=== PATIENT | male | born 1970 | race Caucasian/White ===

== ENCOUNTER → 2023-06-02 07:02 | Outpatient (REF) | payer OTHER, SELFPAY | LOC: RAD 07:02 | PROVIDERS: ATTENDING PHYSICIAN Internal Medicine | DX: R10.9 Unspecified abdominal pain (principal); N23 Unspecified renal colic | CPT/HCPCS: 74176 ==

== ENCOUNTER → 2023-08-09 07:33 | Outpatient (REF) | payer OTHER, SELFPAY | LOC: MRI 07:33 | PROVIDERS: ATTENDING PHYSICIAN Podiatrist Foot Surgery; FAMILY PHYSICIAN Internal Medicine | DX: G57.61 Lesion of plantar nerve, right lower limb (principal) | CPT/HCPCS: 73718 ==

== ENCOUNTER → 2024-11-27 19:14 | Outpatient (REF) | payer OTHER, SELFPAY | LOC: PAVMRI 19:14 | PROVIDERS: ATTENDING PHYSICIAN Family Medicine; FAMILY PHYSICIAN Internal Medicine | DX: M54.12 Radiculopathy, cervical region (principal) | CPT/HCPCS: 72141 ==

== ENCOUNTER 2025-01-16 16:03 | Inpatient (IN) | payer OTHER, SELFPAY ==
[2025-01-15] MEDS: TORADOL 15 MG IV ×2 (19:35→21:37)
[2025-01-15] MEDS: NSS 1000 IV (19:35)
[2025-01-15] MEDS: ZOFRAN 4 MG IV ×2 (19:36→20:57)
[2025-01-15] MEDS: DILAUDID 1 MG IV ×2 (19:36→20:55)
--- NOTE | 2025-01-15 19:36 | ED.GENMED ---
History of Present Illness
General
Chief Complaint: Flank Pain
Source: patient, records and spouse
Exam Limitations: none
Time Seen by Provider: 01/15/25 19:28
Nursing documentation reviewed up to this point in time: agreed with
History of Present Illness
History of Present Illness:
54-year-old male with history as noted presents for evaluation of severe right flank pain. Symptoms started abruptly prior to arrival. Describes a sharp pain in the right flank associated with severe nausea and retching/vomiting. Identical to
prior kidney stones.
Past History
Past History
ED Past Medical History: GERD and Other (Herniated disc nonsurgical, kidney stones, sleep apnea)
ED Past Surgical History: None
Social History
Tobacco: Non-smoker
Alcohol: None
Drug: None
Personal:
Living: with family
Employment: Employed
Family History
Family History: Other (Noncontributory)
Review of Systems
Review of Systems
All Other Systems: ROS reviewed and negative except as documented in HPI and ROS
ABD/GI: Reports nausea and vomiting; Denies abdominal pain
: Denies flank pain
Phy Exam
Physical Exam
Physical Exam:
General: Awake, alert, intermittent retching, rolling in bed unable to find position of comfort
Head: Normocephalic, atraumatic
Eyes: Conjunctiva normal
Throat: Airway intact
Neck: Trachea midline, moving freely without pain
Lungs: Breathing comfortably with no evidence of respiratory distress
Heart: Regular rate
Abd: Soft, non distended, nontender
Neuro: Grossly intact
Skin: Warm and dry
Extremities: Atraumatic
Scores
Heart Failure Risk
Heart Failure Risk Score: Not Applicable
Heart Score for Chest Pain Patients
STEMI patient?: Not applicable
Withdrawal Assessment of Alcohol
Withdrawal Assessment Completed?: Not applicable
Course
Orders/Labs/Results
Orders:
Orders
01/15/25 19:28
CT Abd/pel Without Iv Or Oral Urgent
Comment:
Reason For Exam: R flank pain
Urinalysis Reflex To Culture Urgent
0.9% Sodium Chloride 1000 ml [Nss] 1,000 ml IV BOLUS
Ketorolac [Toradol] 15 mg IV NOW STA
Ondansetron Injectable [Zofran] 4 mg IV NOW STA
01/15/25 19:32
HYDROmorphone [Dilaudid] 1 mg IV NOW STA
01/15/25 19:39
Complete Blood Count/With Diff Urgent
Comprehensive Metabolic Panel Urgent
01/15/25 20:19
UROLOGY CONSULT Urgent
Consulting Provider: Donald Mosquera Jr.
Was physician already notified: Yes
01/15/25 20:37
Tamsulosin [Flomax] 0.4 mg PO NOW STA
Abnormal Lab Results
01/15/25
19:39
Absolute Lymphs (auto) 4.0 H 10^3/uL
(1.2-3.4)
Absolute Monos (auto) 0.9 H 10^3/uL
(0.1-0.6)
Glucose 108 H mg/dl
(70-99)
01/15/25 19:39
01/15/25 19:39
Vital Signs
Initial and Last Documented VS:
Initial Vital Signs
Temp Pulse Resp Pulse Ox
36.7 C 86 20 98
01/15/25 19:25 01/15/25 19:25 01/15/25 19:25 01/15/25 19:25
Last Documented Vital Signs
Temp Pulse Resp BP Pulse Ox
36.7 C 86 20 119/78 98
01/15/25 19:25 01/15/25 19:25 01/15/25 19:25 01/15/25 20:08 11/05/25 19:38
MDM/Problems Addressed
Differential Diagnosis Includes:
Nephrolithiasis, UTI, cholelithiasis, cholecystitis
MDM/Problems Addressed:
54-year-old male presents with right flank pain similar to prior kidney stones. Vitals and exam as above. Place an IV send labs including a CBC and a CMP and send urinalysis. Send for CT abdomen. Treat pain, antiemetics, fluids.
Reassessment patient's pain better controlled after medications here. Still reports 4 out of 10 intensity. Nausea improving. Continue fluids.
CT reviewed by me appears to show right hydronephrosis with approximately 2 mm stone at the UVJ. Awaiting final report.
CT report reviewed: 2 mm stone at the UVJ with hydronephrosis. Labs reviewed CBC unremarkable, CMP no clinically significant abnormalities�creatinine acceptable at 1.0. Patient clinically stable on reassessment. Case discussed with urology for
consultation--patient has been seen by Dr. Mosquera in the past.
Discussed with urology�will admit to their service tonight. Continue fluids, pain control. Will give a dose of Flomax. N.p.o. at midnight.
*Radiology
Radiology exam reviewed: radiology read reviewed
*Pulse Oximetry
SaO2: 98
Oxygen Mode of Delivery: Room air
Patient hypoxic: no (98%)
*Critical Care Note
Total Time (30-74mins, 75-104mins- exclusive of procedures): Not Applicable
Data Reviewed
Review of Other/Old Records Reveals: Labs and Records
Source: patient, records and spouse
Patient Management
Discussion with other providers: Firmware Developer (Discussed with urologist) and Radiologist (Discussed with radiologist)
Escalation/DeEscalation of care consider admission/obs:
Admission indicated
ED Attending Note
-
Portions of this chart may have been created with voice recognition software.� Occasional wrong word or��sound alike� substitutions may have occurred due to the inherent limitations of voice recognition software.
Discharge Plan
Departure
Patient Disposition: Admit
Date of Disposition: 01/15/25
Time of Disposition: 20:38
Admit to doctor: Dr. Mosquera
Presentation/result/management discussed w/ accepting MD/DO: Urology
Discharge Problem:
Right nephrolithiasis
Prescriptions:
No Action
pantoprazole 40 MG tablet,delayed release (DR/EC)
40 mg PO BID
ibuprofen 200 MG tablet
200 mg PO Q6HPRN PRN (Reason: abd pain)
acetaminophen 325 MG tablet
650 mg PO Q4HPRN PRN (Reason: mild pain)
sucralfate 1 GRAM tablet
1 g PO TID
tamsulosin 0.4 MG capsule
0.4 mg PO DAILY
oxycodone-acetaminophen 5 MG/325 MG tablet
1 tab PO Q4HPRN PRN (Reason: pain) Qty: 7 0RF
Interventions
Interventions:
*General Assessment Last Done: 01/15/25 19:25
XC-Fanist-Xzfdzkiouc Assessment Last Done: 01/15/25 20:12
ED-Male Genitourinary Assessment Last Done: 01/15/25 20:12
Discharge Date and Time
Print Language: S[place]APORE[place]
[2025-01-15 19:37] VITALS: BMI 23.6
[2025-01-15 19:47] LABS: Hematocrit 42.2 % (39.0-52.0); Hemoglobin 14.8 g/dL (13.0-18.0); Mean Corp Hgb Conc. 35.1 g/dL (33.0-37.0); Mean Corpuscular Volume 87.9 fL (80.0-94.0); Nucleated Red Blood Cells % 0 % (-); Platelet Count 344 10^3/uL (130-400); Red Cell Dist. Width 12.8 % (11.5-14.5)
[2025-01-15 20:08] VITALS: BP 119/78
[2025-01-15 20:09] LABS: ALT (SGPT) 29 U/L (0-50); AST (SGOT) 28 U/L (17-59); Albumin 4.6 g/dl (3.5-5.0); Alkaline Phosphatase 54 U/L (38-126); Blood Urea Nitrogen 19 mg/dl (9-20); Calcium 10.0 mg/dl (8.4-10.2); Carbon Dioxide 26 mmol/L (22-30); Chloride 104 mmol/L (98-107); Estimated Creatinine Clearance 85 ml/min; Glucose 108 mg/dl (70-99); Potassium 4.1 mmol/L (3.5-5.1); Sodium 137 mmol/L (135-145); Total Protein 7.5 g/dl (6.3-8.2); eGFR > 60.00
[2025-01-15] MEDS: FLOMAX 0.4 MG PO (20:47)
[2025-01-15] MEDS: NSS 500 IV (21:40)
[2025-01-15] MEDS: DILAUDID 0.5 MG IV (22:04)
--- NOTE | 2025-01-15 22:24 | HPS.HSE ---
Family Physician
-
Family Physician: Leo Pruett
Chief Complaint
-
Right flank pain
History of Present Illness
Patient is a 54 year old male with a past medical history significant for asthma, sleep apnea, GERD, inappropriate tachycardia s/p third COVID vaccine, Sciatica (left leg), C-5C-6 osteophyte causing compression w/cervical stenosis affecting left
arm, and kidneys stones (calcium oxalate) x 2, who presents to the emergency department for evaluation of severe right flank pain. Symptoms started abruptly this evening around 7:30 pm. Pain described as sharp pain in the right flank radiating to
right lateral lower abdomen, associated with severe nausea and retching/vomiting. Symptoms identical to prior kidney stones. Patient denies fevers, headache, dizziness.
In the emergency department: Labs unremarkable, vital signs stable, afebrile
Abdomen/Pelvis CT scan impression:
1. MILD ACUTE RIGHT HYDROURETERONEPHROSIS secondary to a 2 mm obstruction calculus in the distal right ureter.
2. 1.5 mm nonobstructing right intrarenal calculus.
Patient received NSS 1 L bolus, Dilaudid, Ketorolac, Flomax, and Zofran.
ED Provider, Dr. Jenny Jr. reviewed with Urology, Dr. Mosquera, who is accepting the patient to his service.
Plan: NPO, IV fluids, pain management, antiemetics. Urology to see in am.
Medical History
Past Medical History
Past Medical History: Reports Arrhythmia (inappropriate tachycardia s/p 3rd covid vaccine), Asthma (PMHx, no meds), GERD and Other (C5/C6 osteophyte causing compression, cervical stenosis affecting L arm, sciatica L leg, sleep apnea)
Past Surgical History: Reports Orthopedic (Knee surgery, per pt - episode of respiratory distress post op)
Social History
Tobacco: Non-smoker
Alcohol: Occasional
Drug: None
Personal:
Living: With Family
Employment: Employed
Family History
Family History: Not pertinent
Allergies / Home Medications
Allergies reflects when Allergies were last updated in [employer].
Home Medications with original date entered in [employer]
Allergy/Medication List:
Patient Allergies
Allergy/AdvReac Type Severity Reaction Status Date / Time
Penicillins Allergy Rash Verified 01/15/25 19:25
prochlorperazine (From Allergy DYSTONIA Verified 01/15/25 21:31
Compazine)
Home Medications
�Medication �Instructions �Recorded
acetaminophen 325 mg tablet 650 mg PO Q6HPRN PRN mild pain 01/15/25
(Tylenol)
ibuprofen 200 mg tablet (Advil) 200 mg PO HS mild pain 01/15/25
pantoprazole 40 mg tablet,delayed 40 mg PO DAILY Gastrointestinal 01/15/25
release (Protonix) Issue
Review of Systems
-
History Source: Patient
Constitutional: Reports No Symptoms
EENT: Reports No Symptoms
Respiratory: Reports No Symptoms
Cardiac: Reports No Symptoms
Abdomen/GI: Reports Abdominal Pain, Nausea and Vomiting
: Reports Flank Pain
Musculoskeletal: Reports No Symptoms
Skin: Reports No Symptoms
Neurological: Reports No Symptoms
Psych: Reports No Symptoms
Physical Exam
Vital Signs
Vital Signs
Temp Pulse Resp BP Pulse Ox
98.0 F 86 20 119/78 98
01/15/25 19:25 01/15/25 19:25 01/15/25 19:25 01/15/25 20:08 01/15/25 19:38
Physical Exam
General: Well Nourished, Appears in Distress and Pain (right sided abdominal pain)
HEENT: Moist mucous membranes and PERRLA
Respiratory: Clear and Non Labored Respirations
Cardiac: S1/S2 and Regular Rhythm
GI: Normal Bowel Sounds and Tender
Skin: Warm and Dry
Neuro: Awake, Alert and Oriented
Psych: Intact Judgment/Insight
Laboratory Results
-
01/15/25 19:39
01/15/25 19:39
Laboratory Results
Total Bilirubin 0.8 mg/dl (0.2-1.3) 01/15/25 19:39
AST 28 U/L (17-59) 01/15/25 19:39
ALT 29 U/L (0-50) 01/15/25 19:39
Alkaline Phosphatase 54 U/L (38-126) 01/15/25 19:39
Data Reviewed
-
CT Scan: Report Reviewed by me
Lab Data: Labs Reviewed by me
Impression/Plan
-
IMPRESSION:
Patient is a 54 year old male with a past medical history significant for asthma, sleep apnea, GERD, inappropriate tachycardia s/p third COVID vaccine, Sciatica (left leg), C-5C-6 osteophyte causing compression w/cervical stenosis affecting left
arm, and kidneys stones (calcium oxalate) x 2, who presents to the emergency department for evaluation of severe right flank pain.
PLAN:
Right nephrolithiasis
-Admit to Urology, Med Surg under the service of Dr. Mosquera
-Abdomen/Pelvis CT scan w/o IV or oral contrast impression:
1. MILD ACUTE RIGHT HYDROURETERONEPHROSIS secondary to a 2 mm obstruction calculus in the distal right ureter.
2. 1.5 mm nonobstructing right intrarenal calculus.
-NPO until seen by Urology, continue IV fluids NSS @ 75 mls/hr
-Strain all urine
-Pain medication: Toradol, Dilaudid
-Antiemetics: Zofran
-Continue Flomax
DVT prophylaxis: SCD's
Code Status: Full Code
[2025-01-16] VITALS (14 sets, daily range): BP systolic 101–136; BP diastolic 60–82; BMI 23.3
[2025-01-16] MEDS: DILAUDID 1 MG IV (02:20)
[2025-01-16] MEDS: TORADOL 15 MG IV ×3 (05:25→23:55)
--- NOTE | 2025-01-16 05:47 | PTCARENOTE ---
Patient is a 54 year old male with Right flank pain, dx Right Nephrolithiasis. PMH asthma, sleep apnea, GERD, inappropriate tachycardia s/p third COVID vaccine, Sciatica (left leg), C-5C-6 osteophyte causing compression w/cervical stenosis affecting
left arm, and kidneys stones (calcium oxalate) x 2, Pt arrived from ED with his at 23:55. AOx3, pt stated pain level acceptable and he did not wish to take a anything else at this time, bed in a low position, call light in reach.
[2025-01-16 06:44] LABS: Hematocrit 37.0 % (39.0-52.0); Hemoglobin 12.9 g/dL (13.0-18.0); Mean Corp Hgb Conc. 34.9 g/dL (33.0-37.0); Mean Corpuscular Volume 88.5 fL (80.0-94.0); Platelet Count 282 10^3/uL (130-400); Red Cell Dist. Width 12.5 % (11.5-14.5)
--- NOTE | 2025-01-16 07:10 | W.PN.URO.CBU ---
Today's Communication / Plan
-
OR if no stone passage
Assessment / Plan
-
stone with intractable pain
reviewed with dr macdonald
continue medical trial of passage- posted for OR today
risks, benefits, alternatives and disabilities reviewed
Diagnosis
-
Date of Service: January 16, 2025
-
Patient Diagnosis:
stone
Subjective
-
pt admitted with right uvj stone- intractable pain and nausea
continues with pain this am
Objective
-
Vital Signs
Temp Pulse Resp BP Pulse Ox
97.7 F 74 18 130/66 95
01/16/25 00:00 01/16/25 00:00 01/16/25 00:00 01/16/25 00:00 01/16/25 00:00
Intake and Output
01/15/25 01/16/25 01/17/25
06:59 06:59 06:59
Intake Total 450 / 450
Output Total 150 / 150
Balance 300 / 300
Intake:
IV piggybacks 450 / 450
Output:
Urine, Voided 150 / 150
Laboratory Results
01/16/25 06:14
Review of Systems
-
Constitutional: Fatigue
Respiratory: No Symptoms
Cardiac: No Symptoms
Abdomen/GI: Nausea
Physical Exam
-
General - no acute distress
[2025-01-16 07:13] LABS: Blood Urea Nitrogen 23 mg/dl (9-20); Calcium 9.7 mg/dl (8.4-10.2); Carbon Dioxide 26 mmol/L (22-30); Chloride 107 mmol/L (98-107); Estimated Creatinine Clearance 61 ml/min; Glucose 133 mg/dl (70-99); Potassium 4.5 mmol/L (3.5-5.1); Sodium 140 mmol/L (135-145); eGFR > 60.00
[2025-01-16] MEDS: PROTONIX IV 40 MG IV (08:47)
[2025-01-16] MEDS: FLOMAX 0.4 MG PO (08:47)
[2025-01-16] MEDS: NSS (PRESERVATIVE FREE) 10 ML IV (08:48)
--- NOTE | 2025-01-16 11:54 | W.IMMPOSTOP ---
Surgical Immed Post Op Note
-
Primary Surgeon:
henri
Assisting Surgeon:
Pre-op Diagnosis:
right ureteral stone
Post-op Diagnosis:
right ureteral stone and tight right ureter
Procedure Performed:
cysto/ureteral dilation/stent
Anesthesia Type:
gen
Specimen / Cultures:
stone
Estimated Blood Loss:
2cc
Complications:
none
Operative Findings:
very tight distal ureter- abld to pass wire and dilate with open ended ureteral stents
ureteroscopy passed- stone removed
7french/24cm right ureteral stent placed
will re-assess later today for possible discharge
[2025-01-16] MEDS: LEVAQUIN 100 IV (12:12)
[2025-01-16] MEDS: SUBLIMAZE 25 MCG IV (12:33)
--- NOTE | 2025-01-16 13:07 | CM ---
CM following re: discharge planning.
Reviewed pt's chart, met with pt.
Pt is a 54 year old male, admitted with primary dx of right ureteral stone and tight right ureter, POD#0 cysto/ureteral dilation/stent
OBS reviewed, letter placed on chart.
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 Per Surgery, possible discharge home today.
D/C plan: home no needs. Spouse to transport.
[2025-01-16] MEDS: NSS 1000 IV ×2 (16:18)
[2025-01-16] MEDS: TORADOL IV (17:58)
[2025-01-16] MEDS: TYLENOL 650 MG PO (21:30)
[2025-01-17 03:15] VITALS: BP 114/75
[2025-01-17] MEDS: MIRALAX 17 GRAMS PO (03:22)
[2025-01-17] MEDS: NSS 1000 IV (04:18)
[2025-01-17] MEDS: TORADOL IV (06:37)
[2025-01-17 07:08] VITALS: BP 126/85
--- NOTE | 2025-01-17 07:33 | W.PN.URO.CBU ---
Today's Communication / Plan
-
discharge
Assessment / Plan
-
stone with intractable pain
s/p right ureteroscopy/dilation/stone extraction and stent
pt kept overnight due to pain/hematuria/nausea- all improved today
plan for discharge with outpt f/u for stent removal
Diagnosis
-
Date of Service: January 17, 2025
-
Patient Diagnosis:
stone
s/p right ureteroscopy/laser litho and stent 01/16
Subjective
-
pt feels better
expected stent discomfort
hematuria improved
eating
no fevers
Objective
-
Vital Signs
Temp Pulse Resp BP Pulse Ox
97.9 F 73 16 126/85 99
01/17/25 07:08 01/17/25 07:08 01/17/25 07:08 01/17/25 07:08 01/17/25 07:08
Intake and Output
01/16/25 01/17/25 01/18/25
06:59 06:59 06:59
Intake Total 450 / 450 1260 / 1260
Output Total 150 / 150 350 / 350
Balance 300 / 300 910 / 910
Intake:
Oral fluids 960 / 960
IV fluids (Total) 300 / 300
Normosol 300 / 300
IV piggybacks 450 / 450
Output:
Urine, Voided 150 / 150 350 / 350
Other:
Number of approximated MODERATE 3
amounts of urine
Laboratory Results
01/16/25 06:14
01/16/25 06:14
Review of Systems
-
Constitutional: Fatigue
Respiratory: No Symptoms
Cardiac: No Symptoms
Abdomen/GI: No Symptoms
: Dysuria
Physical Exam
-
General - no acute distress
--- NOTE | 2025-01-17 07:45 | W.DS.TRANS ---
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
-
Discharge Instructions:
Discharge Diagnosis/Procedures you had a right ureteroscopy/stone removal and
stent
Diet No restrictions
Activity No restrictions
Driving Restrictions As prior to admission
Wound Care expect blood in urine, urinary urgency and
frequency, and some discomfort/pain with
urination
Instructions:
Stand-Alone Forms:
Changes to Home Medications: No
Discharge Medications:
DC Medications w/original date entered in [employer]
acetaminophen 325 mg tablet (Tylenol) 650 mg PO Q6HPRN PRN mild pain 01/15/25
ibuprofen 200 mg tablet (Advil) 200 mg PO HS mild pain 01/15/25
pantoprazole 40 mg tablet,delayed release (Protonix) 40 mg PO DAILY Gastrointestinal Issue 01/15/25
phenazopyridine 200 mg tablet (Pyridium) 200 mg PO BID 10 days #20 tabs 01/16/25
tamsulosin 0.4 mg capsule 0.4 mg PO DAILY #14 caps 01/16/25
tramadol 50 mg tablet 50 mg PO Q8H PRN Pain #20 tabs 01/16/25
nitrofurantoin macrocrystal 100 mg capsule 100 mg PO BID #10 caps 01/17/25
Home Medication Changes
Pending Results: No
[2025-01-17] MEDS: PROTONIX IV 40 MG IV (08:28)
[2025-01-17] MEDS: NSS (PRESERVATIVE FREE) 10 ML IV (08:28)
[2025-01-17] MEDS: FLOMAX 0.4 MG PO (08:28)
== END 2025-01-17 09:21 | disposition home or self-care (01) | DRG 661 ==
LOC: 2 SOUTH 16:03
PROVIDERS: Nurse Practitioner Family; ADMITTING PHYSICIAN Specialist; EMERGENCY PHYSICIAN Emergency Medicine; FAMILY PHYSICIAN Internal Medicine
PROC: 0T768DZ Dilation of Right Ureter with Intraluminal Device, Via Natural or Artificial Opening Endoscopic (ICD-10-PCS; 2025-01-16)
PROC: 0TC68ZZ Extirpation of Matter from Right Ureter, Via Natural or Artificial Opening Endoscopic (ICD-10-PCS; 2025-01-16)
DX: N20.1 Calculus of ureter (principal); G47.30 Sleep apnea, unspecified; K21.9 Gastro-esophageal reflux disease without esophagitis; J45.909 Unspecified asthma, uncomplicated; M48.02 Spinal stenosis, cervical region; M54.32 Sciatica, left side; Z87.442 Personal history of urinary calculi; Z88.0 Allergy status to penicillin; G24.9 Dystonia, unspecified
CPT/HCPCS: 74018; 74176; 76000; 80048; 80053; 82365; 85025; 85027; 96374; 96375; 96376; 99285; C2617